=== PATIENT | male | born 1965 | race African-American/Black ===

== ENCOUNTER 2023-12-10 17:20 | Inpatient (IN) | payer MEDICARE, MEDICAID ==
[~2023-12-10] VITALS: Ht 175.3 cm; Wt 99.8 kg
[2023-12-10 20:32] LABS: BASOPHILS % 0.7 % (0.0-2.0); EOSINOPHILS % 2.1 % (0.0-5.0); HEMATOCRIT. 41.4 % (42.0-52.0); HEMOGLOBIN. 13.8 g/dL (14.0-18.0); LYMPHOCYTES % 17.3 % (20.0-50.0); MEAN CORPUSCULAR HEMOGLOBIN 29.3 pg (28.0-32.0); MEAN CORPUSCULAR HGB CONC 33.3 g/dL (31.0-37.0); MEAN PLATELET VOLUME 9.7 fl (7.4-10.4); MONOCYTES % 7.8 % (2.0-8.0); NEUTROPHILS % 72.1 % (40.0-76.0); PLATELET 143 x1000/uL (130-400); RED BLOOD CELL COUNT 4.71 mill/uL (4.7-6.1); RED CELL DISTRIBUTION WIDTH 16.7 % (11.6-14.6)
[2023-12-10 20:43] LABS: CALCIUM 9.3 mg/dL (8.7-10.4); CARBON DIOXIDE 28 mEq/L (21-32); CHLORIDE 105 mEq/L (98-107); CREATININE 1.1 mg/dL (0.6-1.3); GLUCOSE 109 mg/dL (70-105); POTASSIUM 3.1 mEq/L (3.5-5.1); SODIUM 141 mEq/L (136-145); UREA NITROGEN BLOOD 20 mg/dL (9-23)
[2023-12-10 23:38] LABS: CLARITY URINE CLEAR (CLEAR); COLOR URINE YELLOW (YELLOW); GLUCOSE URINE NEGATIVE (NEGATIVE); KETONES URINE NEGATIVE (NEGATIVE); LEUKOCYTE ESTERASE URINE NEGATIVE (NEGATIVE); NITRITE URINE NEGATIVE (NEGATIVE); OCCULT BLOOD URINE NEGATIVE (NEGATIVE); PROTEIN URINE 1+ (NEGATIVE); SPECIFIC GRAVITY URINE 1.013 (1.005-1.030)
[2023-12-11] VITALS (7 sets, daily range): BP systolic 134–176; BP diastolic 69–112; PULSE 65–74; RESP 18–20; TEMP 97.3–98.1
[2023-12-11 03:00] LABS: RBC URINE 0-2 /hpf (0-2); WBC URINE 0-2 /hpf (0-2)
[2023-12-11 03:01] LABS: SQUAMOUS EPITHELIAL CELL URINE FEW /lpf (RARE/1+)
[2023-12-11 03:02] LABS: BACTERIA URINE TRACE
[2023-12-11] MEDS ORDERED: IPRATROPIUM/ALBUTEROL 0.5-3(2.5)MG/3ML NEB HHN PRN (04:00)
[2023-12-11] MEDS ORDERED: HYDRALAZINE 20MG/ML VIAL IV NR (04:00)
[2023-12-11] MEDS ORDERED: ACETAMINOPHEN 325MG TABLET PO PRN (04:00)
[2023-12-11] MEDS: HYDRALAZINE 10 MG in SODIUM CHLORIDE 0.9% 49.5 ML IV PRN (05:05)
[2023-12-11] MEDS: HYDRALAZINE HCL 100MG TABLET PO SCH (05:31)
[2023-12-11] MEDS: POTASSIUM CHLORIDE 20MEQ TABLET SR PO NR (05:32)
[2023-12-11] MEDS: LISINOPRIL 40MG TABLET PO SCH (05:32)
[2023-12-11] MEDS: ASPIRIN 81MG EC TABLET PO SCH (08:48)
[2023-12-11] MEDS: ISOSORBIDE MONONITRATE 60MG TABLET SR 24HR PO SCH (08:49)
[2023-12-11] MEDS: CARVEDILOL 12.5MG TABLET PO SCH (08:49)
[2023-12-11] MEDS: AMLODIPINE 5MG TABLET PO SCH (08:50)
[2023-12-11] MEDS: TAMSULOSIN HCL 0.4MG SR CAPSULE PO SCH (08:50)
[2023-12-11] MEDS: FUROSEMIDE 40MG TABLET PO SCH (08:50)
[2023-12-11] MEDS ORDERED: TAMSULOSIN HCL 0.4MG SR CAPSULE PO SCH (09:00)
[2023-12-11 10:01] LABS: BASOPHILS % 0.8 % (0.0-2.0); EOSINOPHILS % 2.4 % (0.0-5.0); HEMATOCRIT. 39.4 % (42.0-52.0); HEMOGLOBIN. 13.3 g/dL (14.0-18.0); LYMPHOCYTES % 20.6 % (20.0-50.0); MEAN CORPUSCULAR HEMOGLOBIN 29.3 pg (28.0-32.0); MEAN CORPUSCULAR HGB CONC 33.7 g/dL (31.0-37.0); MEAN CORPUSCULAR VOLUME 86.9 fL (80.0-94.0); MEAN PLATELET VOLUME 10.3 fl (7.4-10.4); NEUTROPHILS % 67.2 % (40.0-76.0); PLATELET 153 x1000/uL (130-400); RED BLOOD CELL COUNT 4.54 mill/uL (4.7-6.1); RED CELL DISTRIBUTION WIDTH 16.8 % (11.6-14.6); WHITE BLOOD COUNT 5.9 x1000/uL (4.5-11.0)
[2023-12-11 10:15] LABS: ALANINE AMINOTRANSFERASE 14 IU/L (10-49); ALBUMIN 3.8 g/dL (3.2-4.8); ASPARTATE AMINOTRANSFERASE 17 IU/L (<34); BILIRUBIN TOTAL 1.1 mg/dL (0.1-1.0); CALCIUM 8.9 mg/dL (8.7-10.4); CARBON DIOXIDE 27 mEq/L (21-32); CHLORIDE 106 mEq/L (98-107); CREATINE KINASE 51 IU/L (46-171); CREATINE KINASE MB FRACTION 1.2 ng/mL (0.5-3.6); CREATININE 1.1 mg/dL (0.6-1.3); GLUCOSE 152 mg/dL (70-105); POTASSIUM 3.5 mEq/L (3.5-5.1); PROTEIN TOTAL 6.7 g/dL (6.0-8.3); SODIUM 140 mEq/L (136-145); UREA NITROGEN BLOOD 21 mg/dL (9-23)
[2023-12-11 10:21] LABS: TROPONIN I HIGH SENSITIVITY 267 ng/L (3.0-53)
[2023-12-11] MEDS ORDERED: HYDRALAZINE 20MG/ML VIAL IV PRN ×2 (11:00→15:00)
[2023-12-11] MEDS: ENOXAPARIN 100MG/ML SYR SUBCUT NR (11:45)
[2023-12-11] MEDS ORDERED: HYDRALAZINE 10 MG in SODIUM CHLORIDE 0.9% 49.5 ML IV PRN (12:00)
[2023-12-11 18:00] LABS: INR 1.2; PROTHROMBIN TIME 12.8 sec (9.6-11.0)
[2023-12-11 20:22] LABS: CREATINE KINASE MB FRACTION 1.6 ng/mL (0.5-3.6)
[2023-12-11] MEDS: ATORVASTATIN CALCIUM 20MG TABLET PO SCH (21:08)
[2023-12-11] MEDS: FAMOTIDINE 20MG TABLET PO SCH (21:09)
[2023-12-11 23:18] LABS: *AMPHETAMINES SCREEN URINE NEGATIVE (NEGATIVE); *BARBITURATES SCREEN URINE NEGATIVE (NEGATIVE); *BENZODIAZEPINES SCREEN URINE NEGATIVE (NEGATIVE); *COCAINE SCREEN URINE PRESUMPTIVE POSITIVE (NEGATIVE); CANNABINOID URINE SCREEN PRESUMPTIVE POSITIVE (NEGATIVE); ECSTASY MDMA SCREEN URINE NEGATIVE (NEGATIVE); METHADONE URINE SCREEN Neg (NEGATIVE); OPIATES URINE SCREEN NEGATIVE (NEGATIVE); PHENCYCLIDINE URINE SCREEN NEGATIVE (NEGATIVE)
[2023-12-12] VITALS: BP 125/66; PULSE 64; RESP 18; TEMP 97.1
[2023-12-12] MEDS: ENOXAPARIN 100MG/ML SYR SUBCUT SCH (00:13)
[2023-12-12 04:00] VITALS: BP 147/85; PULSE 79; RESP 18; TEMP 97.7
[2023-12-12 08:04] VITALS: BP 146/92; PULSE 70; RESP 18; TEMP 97.9
[2023-12-12 10:31] LABS: T4 FREE 1.13 ng/dL (0.89-1.76); THYROID STIMULATING HORMONE 0.7 uIU/mL (0.55-4.78)
[2023-12-12 12:00] VITALS: BP 120/78; PULSE 67; RESP 18; TEMP 98.6
[2023-12-12 16:00] VITALS: BP 143/85; PULSE 67; RESP 18; TEMP 97.4
[2023-12-12 20:00] VITALS: BP 146/95; PULSE 73; RESP 17; TEMP 97.7
[2023-12-13] VITALS: BP 144/88; PULSE 68; RESP 18; TEMP 97.9
[2023-12-13 04:00] VITALS: BP 145/87; PULSE 69; RESP 19; TEMP 98.1
[2023-12-13 08:00] VITALS: BP 151/98; PULSE 72; RESP 18; TEMP 97.7
[2023-12-13 12:00] VITALS: BP 137/98; PULSE 62; RESP 18; TEMP 97.7
[2023-12-13 16:00] VITALS: BP 159/95; PULSE 59; RESP 18; TEMP 97.7
[2023-12-13 17:09] LABS: CLARITY URINE CLEAR (CLEAR); COLOR URINE YELLOW (YELLOW); GLUCOSE URINE NEGATIVE (NEGATIVE); KETONES URINE NEGATIVE (NEGATIVE); LEUKOCYTE ESTERASE URINE NEGATIVE (NEGATIVE); NITRITE URINE NEGATIVE (NEGATIVE); OCCULT BLOOD URINE TRACE (NEGATIVE); PROTEIN URINE TRACE (NEGATIVE); SPECIFIC GRAVITY URINE 1.018 (1.005-1.030)
[2023-12-13 17:25] LABS: BACTERIA URINE NONE SEEN; WBC URINE 0-2 /hpf (0-2)
[2023-12-13 17:26] LABS: SQUAMOUS EPITHELIAL CELL URINE RARE /lpf (RARE/1+)
[2023-12-13 20:00] VITALS: BP 161/99; PULSE 70; RESP 20; TEMP 98.4
[2023-12-14] VITALS: BP 149/77; PULSE 71; RESP 19; TEMP 97.7
[2023-12-14 04:49] VITALS: BP 140/83; PULSE 79; RESP 19; TEMP 98.1
[2023-12-14 08:00] VITALS: BP 172/110; PULSE 72; RESP 18; TEMP 98.4
[2023-12-14 12:00] VITALS: BP 137/81; PULSE 59; RESP 18; TEMP 98.1
[2023-12-14] MEDS ORDERED: POTA-205 MT (16:16)
[2023-12-14] MEDS ORDERED: ATOR20TA PO (16:16)
[2023-12-14] MEDS ORDERED: FURO40TA5 PO (16:16)
[2023-12-14] MEDS ORDERED: HYDR100T26 PO (16:16)
[2023-12-14] MEDS ORDERED: ISOS60TA76 PO (16:16)
[2023-12-14] MEDS ORDERED: ASPI-1406 PO (16:16)
[2023-12-14] MEDS ORDERED: LOSA50TA41 PO (16:16)
[2023-12-14] MEDS ORDERED: TAMS-11 PO (16:16)
[2023-12-14] MEDS ORDERED: AMLO10TA80 PO (16:16)
[2023-12-14] MEDS ORDERED: COR12 PO (16:16)
[2023-12-14 16:58] VITALS: BP 137/81; PULSE 59; TEMP 98.1; O2SAT 100
[2023-12-14] MEDS ORDERED: LOSARTAN 50 MG TABLET PO SCH (21:00)
[2023-12-15] MEDS ORDERED: AMLODIPINE 10MG TABLET PO SCH (09:00)
== END 2023-12-14 17:47 | disposition home or self-care (01) | DRG 726 ==
LOC: ER 17:42 → 6WST 12-11 01:23 → EDBEDREQ 12-11 01:53 → EDBEDREQDT 12-11 01:53 → EDBEDREQTM 12-11 01:53 → 8WST 12-11 14:52
PROVIDERS: ADMIT Internal Medicine; ATTEND Internal Medicine
DX: N40.1 Benign prostatic hyperplasia with lower urinary tract symptoms (principal); I42.9 Cardiomyopathy, unspecified; Z59.00 Homelessness unspecified; I16.0 Hypertensive urgency; E87.6 Hypokalemia; R35.0 Frequency of micturition; I11.0 Hypertensive heart disease with heart failure; I50.9 Heart failure, unspecified; F14.10 Cocaine abuse, uncomplicated; F19.10 Other psychoactive substance abuse, uncomplicated; F10.10 Alcohol abuse, uncomplicated; I73.9 Peripheral vascular disease, unspecified; E78.5 Hyperlipidemia, unspecified; F17.210 Nicotine dependence, cigarettes, uncomplicated; K40.90 Unilateral inguinal hernia, without obstruction or gangrene, not specified as recurrent; Z79.899 Other long term (current) drug therapy
CPT/HCPCS: 36415; 71045; 74176; 80048; 80053; 80061; 80305; 81003; 82550; 82553; 83605; 83735; 83880; 84145; 84153; 84439; 84443; 84484; 85025; 93005; 93306; 93970; 99285; J1650